=== PATIENT | female | born 1980 | race Caucasian/White ===

== ENCOUNTER 2019-09-01 07:43 | Inpatient (IN) ==
[2019-09-01] MEDS ORDERED: OXYTOCIN 30 UNITS/500 ML BAG IV PRN ×3 (07:47→14:41)
[2019-09-01] MEDS ORDERED: LACTATED RINGER'S 1,000 ML IV PRN (07:47)
--- NOTE | 2019-09-01 07:58 | History & Physical Report ---
Date of Service September 01, 2019 Assessment & Plan (1) Elective induction of labor planned: Neema is a 39 yo here today for IOL at 39w. - will start pitocin - plans to labor without analgesia; if pain becomes unbearable would consider stadol before epidural - intends to breast feed - anticipate vaginal delivery History of Present Illness Primary Care Provider: NO PCP at 39w, dated via LPM. Here for elective IOL - patient has strong preference for female provider due to cultural/spiritual reasons. is complicated by AMA for which Neema has been getting weekly NSTs since 36 weeks, all of which have been reactive. Neema also has a history of hypothyroidism, currently on Synthroid 125 mcg. Only other medication is PNV. At her office visit on 08/31/19, Neema reported passing a blood clot, after which she felt an increase in pelvic pressure. [place] some ctx last night, none so far today. She continues to feel movements. Water has not broke. Labs Blood type: B+ Antibody Screen: neg H.8 Hct: 38 Plt: 259 Rubella: non-immune VDRL/RPR: non-reactive Gonorrhea: neg Chlamydia: neg GBS: neg HIV: neg HbsAq: neg Glucose Tolerance x2: normal Allergies Allergy/AdvReac Type Severity Reaction Status Date / Time No Known Allergies Allergy Verified 09/01/19 08:18 Home Medications Home Medications Medication Instructions Recorded Confirmed Type levothyroxine 125 mcg capsule 125 mcg PO DAILY #30 cap 05/10/19 09/01/19 Rx prenat.vits,arturo,mob-mjso-crann 1 tab PO DAILY #90 tab 07/22/19 09/01/19 Rx Patient History Medical History Family history of congenital heart defect Hypothyroidism Varicella Surgical History S/P appendectomy S/P dilatation and curettage Family History Mother Diabetes Father Hypertension Social History Preferred Language: Portuguese Communication Ability: Effective Drug Inspector Required: No Beliefs That Will Affect Care: Cultural Cultural Beliefs: Pt does not want male physicians. Will make exception for anesthesia marital status: marital status details: Shaggy Stone (44) Current Living Situation: Family Current Living Situation Comment: and 4 children current occupational status: unemployed current occupation: homemaker Other Information That Helps Us Care for You: No Feels Safe at Home: Yes Safety Concerns: Feels Safe At This Time Smoking Status: Never smoker Hx Alcohol Use: No Hx Substance Use: No Review of Systems no fever, no chills and no sweats no worsening vision no cough and no dyspnea no chest pain, no palpitations and no calf pain no nausea, no vomiting, no constipation and no diarrhea/loose stools no dysuria and no urinary frequency Physical Exam Constitutional: WD/WN, vitals as above Eyes: + anicteric sclerae Neck: normal visual inspection Respiratory: normal respiratory effort, lungs clear to auscultation does not use accessory muscles Auscultation: no crackles, no rales, no wheezes and no pleural rub Cardiovascular: Rate/Rhythm: regular rate and regular rhythm Heart Sounds: normal S1 and normal S2; no gallop, no murmur and no cardiac rub Gastrointestinal (Abdomen): Gravid. Uterus at term; + heart tones; vertex position EFW 6-7 lbs. Neurologic: awake; no focal motor deficits Psychiatric: A+Ox3, euthymic affect Genitourinary: OB Exam Abdomen: + vertex, + estimated weight (6-7 pounds) and + irregular contractions OB Exam Monitor Tracing: + external FHT monitor used, + category I and + normal FHT variability Cervical Exam: 1 cm/ 70 % effacement/ -2 station, soft and posterior Results & Data Vital Signs (Past 12 Hours) Vital Signs Pulse BP 09/01/19 07:49 90 122/74 Monitoring External Monitor Baseline HR: 131 bpm Variability: moderate Accelerations: >2 in 20 minutes Decelerations: none Category 1 Tocodynamometer Contractions: occasional Supervising Physician Co-Signing Physician Notes Resident Physician Supervision Note: I was present with Dr. Henao during the history and exam. I discussed the case with the resident and agree with the findings and plan as documented in the note. Any exceptions or clarifications are listed here: [None] Documented By: Jammie Rodrigez MD, FACOG Resident Activity Tracking Resident Involvement: Resident Care Provided Care Provided: OB Delivery
[2019-09-01 08:16] LABS: Hemoglobin 12.8 g/dL (12.0-16.0); Mean Corpuscular Hemoglobin 29.6 pg (25-34); Platelet Count 259 K/uL (130-400); RDW Coefficient of Variation 13.9 % (11.5-14.5); RDW Standard Deviation 45.2 fL (36.4-46.3); Red Blood Count 4.32 M/uL (4.2-5.4); White Blood Count 8.07 K/uL (4.8-10.8)
[2019-09-01 08:21] LABS: Mean Corpuscular Hgb Conc 33.7 g/dL (32-36)
[2019-09-01] MEDS ORDERED: ePHEDrine sulfate 50 MG/ML AMP ONE (13:01)
[2019-09-01] MEDS ORDERED: fentaNYL citrate 100 MCG/2 ML VIAL ONE (13:01)
[2019-09-01] MEDS ORDERED: BUPIVACAINE 0.25% 30 ML VIAL ONE (13:01)
[2019-09-01] MEDS ORDERED: fentaNYL 2MCG/ML ROPIV 1.25MG/ML 100 ML BAG EPI ONE (13:02)
[2019-09-01] MEDS ORDERED: fentaNYL 2MCG/ML ROPIV 1.25MG/ML 100 ML BAG EPI PRN (13:14)
[2019-09-01] MEDS ORDERED: ePHEDrine sulfate 50 MG/ML AMP IV PRN (13:14)
[2019-09-01] MEDS ORDERED: DiphenhydrAMINE HCL 50 MG/ML VIAL IV PRN (13:14)
[2019-09-01] MEDS ORDERED: ONDANSETRON INJ 2 MG/ML 2 ML VIAL IV PRN (13:14)
[2019-09-01] MEDS ORDERED: NALBUPHINE HCL INJ 10 MG/ML AMP IV PRN (13:14)
[2019-09-01] MEDS ORDERED: NALOXONE HCL 0.4 MG/1 ML VIAL/CARP IV PRN (13:14)
[2019-09-01] MEDS ORDERED: NALOXONE HCL 1 MG in SODIUM CHLORIDE 0.9% 1000ML 1,000 ML IV PRN (13:14)
--- NOTE | 2019-09-01 13:17 | Anesthesiology Consultation ---
Date of Service September 01, 2019 Assessment & Plan Chart Review Chart Review: Patient NOT seen in Pre Admission Testing and Acceptable Risk for Labor Epidural Consults Requested none ASA ASA2 Proposed Anesthesia Anesthesia Type: Labor Epidural and CSE Risk / Benefits Reviewed With: PT / POA / Parent / Guardian, Accepts Plan and Informed Consent Obtained History Height/Weight Height: 5 ft 4.57 in Weight: 73.936 kg Allergies Allergy/AdvReac Type Severity Reaction Status Date / Time No Known Allergies Allergy Verified 09/01/19 08:18 Medications Home Medications Medication Instructions Recorded Confirmed Last Taken levothyroxine 125 mcg capsule 125 mcg PO DAILY #30 cap 05/10/19 09/01/19 09/01/19 06:00 prenat.vits,arturo,[id number]-[id number] 1 tab PO DAILY #90 tab 07/22/19 09/01/19 08/31/19 15:00 Active Medications Generic Name Dose Route Start Last Admin Trade Name Freq PRN Reason Stop Dose Admin Lactated Ringer's 1,000 mls @ 125 mls/hr 09/01/19 07:47 09/01/19 12:58 Lr IV 09/03/19 07:46 999 mls/hr .Q8H PRN Infusion L&D Protocol Protocol Oxytocin 30 units in 500 mls @ 9 mls/hr 09/01/19 07:47 09/01/19 12:10 Pitocin IV 09/03/19 07:46 0.54 units/hr .Q24H PRN 9 mls/hr Labor Induction/Augmentation Titration Protocol 0.54 UNITS/HR NPO Date Last Intake of Fluids: 09/01/19 Time Last Intake of Fluids: 14:00 Date Last Intake of Solids: 09/01/19 Time Last Intake of Solids: 06:30 Past Medical History Medical History Family history of congenital heart defect Hypothyroidism Varicella Exercise / Class Metabolic Activity II 4-5 Yardwork/Stairs/Walk up hill Past Family History Family History Mother Diabetes Father Hypertension Past Surgical History Surgical History S/P appendectomy S/P dilatation and curettage Past Anesthesia History No Hx of Anesthesia Complications and No Family Hx of Anesthesia Complications History of PONV No Hx of PONV and No Hx of Motion Sickness Social History Smoking Status: Never smoker Hx Alcohol Use: No Hx Substance Use: No Review of Systems no chest pain or sob Physical Exam Vital Signs Last Vital Signs Temp 36.9 C 09/01/19 12:03 Pulse 78 09/01/19 13:10 Resp 20 09/01/19 12:03 BP 121/60 09/01/19 13:06 Pulse Ox 99 09/01/19 13:10 ENMT Mouth: no TMJ abnormality Thyromental Distance: > or= 3.5 Finger Breadths Mallampati Class: II Neck normal visual inspection Respiratory normal respiratory effort Auscultation: lungs clear to auscultation bilaterally Cardiovascular Rate/Rhythm: regular rate and regular rhythm Musculoskeletal Spine: normal cervical ROM Neurologic moves all extremities Psychiatric Orientation: alert and oriented x 3 Testing Laboratory Results 09/01/19 07:55
[2019-09-01] MEDS ORDERED: OXYCODONE/ACETAMINOPHEN 5mg/325mg TAB PO PRN (14:41)
[2019-09-01] MEDS ORDERED: bisacodyL 10 MG SUPP PR PRN (14:41)
[2019-09-01] MEDS ORDERED: ACETAMINOPHEN 325 MG TAB PO PRN (14:41)
[2019-09-01] MEDS ORDERED: HYDROCORTISONE ACETATE 25 MG SUPP PR PRN (14:41)
[2019-09-01] MEDS ORDERED: DIPHTHERIA/TETANUS/PERTUSSIS 0.5 ML SYR/VIAL IM ONE (14:41)
[2019-09-01] MEDS ORDERED: BENZOCAINE 20% AER SPR 82.5 GM CAN EXT PRN (14:41)
[2019-09-01] MEDS ORDERED: SUPERCREAM 0.870% 15 GM JAR EXT PRN (14:41)
--- NOTE | 2019-09-01 15:13 | Anesthesia Procedure Note ---
Date of Service September 01, 2019 Anesthesia Post Epidural Note Vital Signs Vital Signs: Temp Pulse Resp BP Pulse Ox 36.9 C 75 20 117/56 L 98 09/01/19 13:43 09/01/19 14:56 09/01/19 14:41 09/01/19 14:56 09/01/19 14:10 Notes Mental Status: alert / awake / arousable and participated in evaluation Nausea / Vomiting: adequately controlled Pain: adequately controlled Airway Patency, RR, SpO2: stable & adequate BP & HR: stable & adequate Hydration State: stable & adequate Neuraxial Anesthesia: was administered and sensory block is resolving Anesthetic Complications: no major complications apparent and Pt Satisfied with anesthetic care Epidural: Removed without complications and With tip intact
--- NOTE | 2019-09-01 16:46 | Delivery Summary ---
DATE OF OPERATION: 09/01/2019 The patient is a 39-year-old 6, para 4-0-1-4, white female who presented at 39 weeks for elective induction because of a history of rapid labor and delivery with her last 2 infants. She arrived in labor and delivery for induction. She was started on Pitocin augmentation. She ruptured membranes spontaneously for clear fluid. She progressed to 5 cm dilated and was requesting epidural analgesia. This worked effectively and she was complete and feeling rectal pressure shortly after the epidural was effective. She pushed effectively over intact perineum for delivery of a viable male . The delivered direct occiput posterior presentation. The rest of the infant delivered easily and was placed on the mother's abdomen for further attention and drying. The was vigorously crying and moving all 4 limbs. The cord was clamped and cut after 30 seconds. A cord blood donation specimen was obtained. The placenta was then expressed intact with a 3-vessel cord. A first-degree perineal laceration was repaired with 3-0 chromic in the usual fashion. Estimated blood loss was 200 mL. Bladder was emptied for 200 mL of urine after the repair was done. Mother and infant were doing well post-delivery. I attest to the content of the Intraoperative Record and any orders documented therein. Any exception s are noted below.
[2019-09-01] MEDS ORDERED: DOCUSATE SODIUM 100 MG CAP ONE (19:57)
[2019-09-01] MEDS: DOCUSATE SODIUM 100 MG CAP PO SCH (21:49)
[2019-09-01] MEDS: IBUPROFEN 600 MG TAB PO PRN (23:49)
[2019-09-02 06:24] LABS: Hematocrit (blood only) 35.7 % (37-47); Hemoglobin 12.1 g/dL (12.0-16.0); Mean Corpuscular Hemoglobin 29.8 pg (25-34); Mean Corpuscular Hgb Conc 33.9 g/dL (32-36); Mean Corpuscular Volume 87.9 fL (80-100); Mean Platelet Volume 10.1 fL (7.4-10.4); Platelet Count 228 K/uL (130-400); RDW Standard Deviation 44.7 fL (36.4-46.3); Red Blood Count 4.06 M/uL (4.2-5.4); White Blood Count 11.18 K/uL (4.8-10.8)
--- NOTE | 2019-09-02 06:32 | Obstetrical Progress Note ---
Date of Service September 02, 2019 Assessment & Plan (1) Status post vaginal delivery: Neema is a 39 yo on PPD 1 after elective IOL at 39w - GBS -, Blood Type B+, Rubella non-immune -Vitals reviewed and WNL - hemoglobin stable - bloating likely secondary to abdominal wall weakness in a multip - will look into maternity belt for her -patient is doing clinically well Recovering normally - After discharge will have [address] Trent. Supervising Physician Co-Signing Physician Notes Resident Physician Supervision Note: I interviewed and examined the patient. Discussed with Dr. Martinez and agree with findings and plan as documented in the note. Any exceptions or clarifications are listed here: [None] Documented By: Jammie Rodrigez MD, FACOG Subjective Ambulation: ambulating normally Voiding: no voiding problems Passing Gas:: Yes Diet Tolerance:: regular diet Lochia:: moderate Feeding Type:: breast feeding Review of Systems Constitutional: no fever, no chills and no sweats Eyes: no worsening vision Respiratory: no cough and no dyspnea Cardiovascular: no chest pain, no palpitations, no edema and no calf pain Gastrointestinal: + bloating; no nausea and no vomiting Genitourinary: no dysuria and no urinary frequency Neurologic: no headache(s) Physical Exam Constitutional: WD/WN, vitals as above no acute distress Respiratory: normal respiratory effort, lungs clear to auscultation does not use accessory muscles Auscultation: no crackles, no rales, no rhonchi, no wheezes and no pleural rub Cardiovascular: Rate/Rhythm: regular rate and regular rhythm Heart Sounds: normal S1 and normal S2; no gallop, no murmur and no cardiac rub Extremities: no calf tenderness and no pedal edema Gastrointestinal (Abdomen): Inspection/Auscultation: normal bowel sounds; abdomen not distended Percussion/Palpation: abdomen soft Genitourinary: Uterus: fundus firm, palpable 1 cm below the umbilicus Results & Data Vital Signs (Past 12 Hours) Vital Signs Temp Pulse Resp BP Pulse Ox 09/02/19 03:35 36.6 C 72 18 100/66 97 09/01/19 23:35 36.6 C 73 18 100/64 97 09/01/19 19:30 36.7 C 84 18 104/65 97 Resident Activity Tracking Resident Involvement: Resident Care Provided Care Provided: OB Delivery
[2019-09-02] MEDS: LEVOTHYROXINE SODIUM 125 MCG TABLET PO SCH (06:53)
[2019-09-02] MEDS: PRENATAL VITAMIN 1 TAB PO SCH (08:05)
[2019-09-02] MEDS: DOCUSATE SODIUM 100 MG CAP PO SCH ×2 (08:05→22:02)
[2019-09-02] MEDS ORDERED: MEASLES, MUMPS & RUBELLA VIRUS VIAL SQ ONE (12:57)
[2019-09-02] MEDS ORDERED: bisacodyL 5 MG TABEC PO SCH (20:00)
[2019-09-02] MEDS: IBUPROFEN 600 MG TAB PO PRN (22:02)
[2019-09-03] MEDS: LEVOTHYROXINE SODIUM 125 MCG TABLET PO SCH (06:45)
--- NOTE | 2019-09-03 06:51 | Obstetrical Progress Note ---
Date of Service September 03, 2019 Assessment & Plan (1) Status post vaginal delivery: Neema is a 39 yo on PPD 2 after elective IOL at 39w - GBS -, Blood Type B+, Rubella non-immune - Vitals reviewed and WNL - bloating likely secondary to abdominal wall weakness in a multip - script p rovided for maternity belt - will check TSH in post- period - patient is doing clinically well Recovering normally. Discharge instructions reviewed. - After discharge will have [address] Trent. Supervising Physician Co-Signing Physician Notes Resident Physician Supervision Note: I was present with Dr. Martinez during the history and exam. I discussed the case with the resident and agree with the findings and plan as documented in the note. Any exceptions or clarifications are listed here: D/c instructions reviewed, questions answered Documented By: Horacio Castellano Jr, MD, FACOG Subjective Ambulation: ambulating normally Voiding: no voiding problems Passing Gas:: Yes Diet Tolerance:: regular diet Lochia:: mild Feeding Type:: breast feeding Review of Systems Constitutional: +bilateral breast pain when nursing Gastrointestinal: + bloating; no nausea and no vomiting Physical Exam Constitutional: WD/WN, vitals as above no acute distress Eyes: + anicteric sclerae Neck: normal visual inspection Respiratory: normal respiratory effort, lungs clear to auscultation does not use accessory muscles Auscultation: no crackles, no rales, no rhonchi, no wheezes and no pleural rub Cardiovascular: Rate/Rhythm: regular rate and regular rhythm Heart Sounds: normal S1 and normal S2; no gallop, no murmur and no cardiac rub Extremities: no calf tenderness and no pedal edema Gastrointestinal (Abdomen): Inspection/Auscultation: normal bowel sounds; abdomen not distended Percussion/Palpation: abdomen soft Neurologic: awake; no focal motor deficits Psychiatric: A+Ox3, euthymic affect Genitourinary: Uterus: fundus firm, palpable 2 cm below the umbilicus Results & Data Vital Signs (Past 12 Hours) Vital Signs Temp Pulse Resp BP Pulse Ox 09/03/19 01:45 36.6 C 81 16 98/63 L 98 09/02/19 19:40 36.6 C 79 16 100/62 97 Resident Activity Tracking Resident Involvement: Resident Care Provided Care Provided: OB Delivery
[2019-09-03 07:10] LABS: Hematocrit (blood only) 36.4 % (37-47); Hemoglobin 12.1 g/dL (12.0-16.0)
[2019-09-03] MEDS: DOCUSATE SODIUM 100 MG CAP PO SCH (10:59)
[2019-09-03] MEDS: PRENATAL VITAMIN 1 TAB PO SCH (10:59)
== END 2019-09-03 16:50 | disposition home or self-care (01) | DRG 807 ==
LOC: 4S1 07:43 → 4S2 18:53

== ENCOUNTER 2022-02-15 07:48 | Inpatient (IN) ==
[2022-02-15] MEDS ORDERED: OXYTOCIN 30 UNITS/500 ML BAG IV PRN ×3 (07:55→18:48)
--- NOTE | 2022-02-15 08:30 | History & Physical Report ---
Date of Service February 15, 2022 Assessment & Plan (1) Gestational diabetes: (2) : (3) Post-dates : Plan 41 year old female at 40 1/7 1. Fetus: Cat 1 2. Labor: Induction with Pitocin 3. GBS - 4. Vitals: Normal 5. GDM: continue to monitor blood sugars Admission and Anticipated Discharge Date Admission Date: February 15, 2022 History of Present Illness Primary Care Provider: NO PCP Neema is a 41 y/o female currently at [facility] with an PAULO 02/20/22 as determined by LMP who is here for induction/. Her was complicated by gestational diabetes, hypothyroidism, advanced maternal age. No contractions; + movement; no fluid loss; no bloody show External FHT and external uterine monitors used; Category 1 tracing; mod FHT variability. Had regular appointments with OB. Labs: (07/17/22) Blood type: B+ Antibody screen: negative H.3 (today) Hct: 36.2 (today) WBC: 6.97 (today) Plt: 192 (today) Rubella: immune VDRL/RPR: nonreactive Gonorrhea: negative Chlamydia: negative HIV: negative HbSAg: Neg GBS: neg Other screens: panorama low risk-- smp cf/sma neg-- smp Allergies Allergy/AdvReac Type Severity Reaction Status Date / Time No Known Allergies Allergy Verified 02/14/22 13:42 Home Medications Medication Instructions Recorded Confirmed Type prenat.vits,arturo,[id number] 1 tab PO DAILY #90 tabs 07/17/21 02/14/22 Rx acetone (urine) test (Ketone Urine #50 ea 12/24/21 02/14/22 Rx Test) blood sugar diagnostic (OneTouch #150 ea 12/24/21 02/14/22 Rx Verio test strips) blood-glucose meter (OneTouch #1 ea 12/24/21 02/14/22 Rx Verio Flex meter) lancets 33 gauge (OneTouch Delica #150 ea 12/24/21 02/14/22 Rx Plus Lancet) levothyroxine 125 mcg tablet 125 mcg PO DAILY #30 tabs 02/12/22 02/14/22 Rx Patient History Medical History (Updated 02/15/22 @ 10:06 by Sammie Parra DO) Gestational diabetes 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 Surgical History S/P appendectomy S/P dilatation and curettage Family History Mother Diabetes Father Hypertension Social History (Updated 07/03/21 @ 10:58 by Zahra Coto) Smoking Status: Never smoker Second Hand Exposure: No; Do You Dip or Chew Tobacco: No; Tobacco Cessation Education Requested by Patient: No Hx Alcohol Use: No Hx Substance Use: No Preferred Language: [place] Communication Ability: Effective Commodity Director Required: No Beliefs That Will Affect Care: None marital status: marital status details: Shaggy Stone (46) in [place] Current Living Situation: Spouse and Family Current Living Situation Comment: and 5 children current occupational status: unemployed current occupation: homemaker Feels Safe at Home: Yes Safety Concerns: Feels Safe At This Time Assistive Devices: None Review of Systems Denies fever, chills, sweats Denies shortness of breath, difficulty breathing, chest pain, palpitations, chest pressure. Denies breast pain. Denies dysuria. Denies headache or changes in vision. Physical Exam Physical Exam: General: Alert, oriented. No acute distress. Cardiac: Regular rate and rhythm, no murmurs/rubs/gallops. Respiratory: Clear to auscultation bilaterally a/p, no wheezes/rales/rhonchi. No increased work of breathing. Symmetrical chest rise. No respiratory distress. Abdomen: Gravid Lower Extremities: No lower extremity edema or swelling. No deep calf pain. Velia's negative bilaterally Genitourinary: OB Exam Abdomen: + vertex and + estimated weight (6-7 pounds) Manual OB Exam: + cervical dilation (closed), + cervical effacement 70% and + station -2 OB Exam Monitor Tracing: + external FHT monitor used, + external uterine monitor used, + category I and + normal FHT variability after reviewing the procedure with Neema, she is agreeable to having cervical balloon placed along with pitocin for labor augmentation. After the speculum was placed, the cervix was visualized and a Reece catheter was inserted into the cervical os with the assistance of a stylet. 40cc of sterile water was placed into the balloon. the catheter was then placed on traction and attached to her left thigh. She tolerated the procedure well. Supervising Physician Co-Signing Physician Notes Resident Physician Supervision Note: I interviewed and examined the patient. Discussed with Dr. Parra and agree with findings and plan as documented in the note. Any exceptions or clarifications are listed here: [None] Documented By: Jammie Rodrigez MD, FACOG Resident Activity Tracking Resident Involvement: Resident Care Provided Care Provided: OB Delivery
[2022-02-15 09:00] LABS: Hematocrit (blood only) 36.2 % (34.1-44.9); Hemoglobin 12.3 g/dl (12.0-16.0); Mean Corpuscular Hemoglobin 29.4 pg (25.0-34.0); Mean Corpuscular Volume 86.4 fL (80.0-100.0); Mean Platelet Volume 10.5 fL (9.4-12.3); Platelet Count 192 K/uL (130-400); RDW Coefficient of Variation 12.8 % (11.5-14.5); RDW Standard Deviation 39.7 fL (36.4-46.3); Red Blood Count 4.19 M/uL (3.93-5.22); White Blood Count 6.97 K/ul (4.8-10.8)
[2022-02-15] MEDS: LACTATED RINGER'S 1,000 ML IV PRN ×2 (09:35→17:07)
[2022-02-15] MEDS ORDERED: ePHEDrine sulfate 50 MG/ML AMP ONE (16:46)
[2022-02-15] MEDS ORDERED: fentaNYL citrate 100 MCG/2 ML VIAL ONE (16:46)
[2022-02-15] MEDS ORDERED: SODIUM CHLORIDE 0.9% INJ 10 ML VIAL ONE (16:46)
[2022-02-15] MEDS ORDERED: BUPIVACAINE 0.25% 30 ML VIAL ONE (16:47)
[2022-02-15] MEDS ORDERED: fentaNYL 2MCG/ML ROPIVACAINE 1.25MG/ML 100 ML BAG EPI ONE (16:47)
[2022-02-15] MEDS ORDERED: LIDOCAINE 2%/EPINEPHRINE 1:200,000 20 ML SDV ONE (16:47)
[2022-02-15] MEDS ORDERED: NALOXONE HCL 0.4 MG/1 ML VIAL/CARP IV PRN (17:27)
[2022-02-15] MEDS ORDERED: fentaNYL 2MCG/ML ROPIVACAINE 1.25MG/ML 100 ML BAG EPI PRN (17:27)
[2022-02-15] MEDS ORDERED: ePHEDrine sulfate 50 MG/ML AMP IV PRN (17:27)
[2022-02-15] MEDS ORDERED: diphenhydrAMINE 50 MG/ML VIAL IV PRN (17:27)
[2022-02-15] MEDS ORDERED: ONDANSETRON INJ 2 MG/ML 2 ML VIAL IV PRN (17:27)
[2022-02-15] MEDS ORDERED: NALOXONE HCL 1 MG in SODIUM CHLORIDE 0.9% 1000ML 1,000 ML IV PRN (17:27)
[2022-02-15] MEDS ORDERED: NALBUPHINE HCL INJ 10 MG/ML AMP IV PRN (17:27)
--- NOTE | 2022-02-15 17:29 | Anesthesiology Consultation ---
Date of Service February 15, 2022 Assessment & Plan Chart Review Chart Review: Patient NOT seen in Pre Admission Testing and Acceptable Risk for Labor Epidural Consults Requested none ASA ASA2 Proposed Anesthesia Anesthesia Type: Labor Epidural and CSE Risk / Benefits Reviewed With: PT / POA / Parent / Guardian, Accepts Plan and Informed Consent Obtained History Height/Weight Height: 5 ft 1.42 in Weight: 77.111 kg Allergies Allergy/AdvReac Type Severity Reaction Status Date / Time No Known Allergies Allergy Verified 02/15/22 10:34 Medications Home Medications Medication Instructions Recorded Confirmed Last Taken prenat.vits,arturo,[id number] 1 tab PO DAILY #90 tabs 07/17/21 02/15/22 1 Day Ago ~02/14/22 acetone (urine) test (Ketone Urine #50 ea 12/24/21 02/15/22 Unknown Test) blood sugar diagnostic (OneTouch #150 ea 12/24/21 02/15/22 Unknown Verio test strips) blood-glucose meter (OneTouch #1 ea 12/24/21 02/15/22 Unknown Verio Flex meter) lancets 33 gauge (OneTouch Delica #150 ea 12/24/21 02/15/22 Unknown Plus Lancet) levothyroxine 125 mcg tablet 125 mcg PO DAILY #30 tabs 02/12/22 02/15/22 02/15/22 Active Medications Generic Name Dose Route Start Last Admin Trade Name Freq PRN Reason Stop Dose Admin Lactated Ringer's 1,000 mls @ 125 mls/hr 02/15/22 07:55 02/15/22 17:07 Lr IV 02/17/22 07:54 125 mls/hr .Q8H PRN Administration L&D Protocol Protocol Oxytocin 30 units in 500 mls @ 15 mls/hr 02/15/22 07:57 02/15/22 16:01 Pitocin IV 02/17/22 07:56 0.9 units/hr .Q24H PRN 15 mls/hr Labor Induction/Augmentation Titration Protocol 0.9 UNITS/HR NPO Date Last Intake of Fluids: 02/15/22 Time Last Intake of Fluids: 16:00 Date Last Intake of Solids: 02/15/22 Time Last Intake of Solids: 09:00 Past Medical History Medical History Gestational diabetes 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 Exercise / Class Metabolic Activity II 4-5 Yardwork/Stairs/Walk up hill Past Family History Family History Mother Diabetes Father Hypertension Past Surgical History Surgical History S/P appendectomy S/P dilatation and curettage Past Anesthesia History No Hx of Anesthesia Complications and No Family Hx of Anesthesia Complications History of PONV No Hx of PONV and No Hx of Motion Sickness Social History Smoking Status: Never smoker Do You Dip or Chew Tobacco: No Hx Alcohol Use: No Hx Substance Use: No Review of Systems no chest pain or sob Physical Exam Vital Signs Last Vital Signs Temp 36.7 C 02/15/22 14:53 Pulse 99 H 02/15/22 17:27 Resp 16 02/15/22 16:33 BP 126/66 02/15/22 17:26 Pulse Ox 100 02/15/22 17:27 ENMT Mouth: no TMJ abnormality Thyromental Distance: > or= 3.5 Finger Breadths Mallampati Class: II Neck normal visual inspection Respiratory normal respiratory effort Auscultation: lungs clear to auscultation bilaterally Cardiovascular Rate/Rhythm: regular rate and regular rhythm Musculoskeletal Spine: normal cervical ROM Neurologic moves all extremities Psychiatric Orientation: alert and oriented x 3 Testing Laboratory Results 02/15/22 08:13 Blood Type B Positive 02/15/22 08:13 Antibody Screen NEGATIVE 02/15/22 08:13 02/15/22 09:43 POC Glucose 88
[2022-02-15] MEDS ORDERED: bisacodyL 10 MG SUPP PR PRN (18:48)
[2022-02-15] MEDS ORDERED: HYDROCORTISONE ACETATE 25 MG SUPP PR PRN (18:48)
[2022-02-15] MEDS ORDERED: BENZOCAINE 20% AER SPR 82.5 GM CAN EXT PRN (18:48)
[2022-02-15] MEDS ORDERED: oxyCODONE/ACETAMINOPHEN 5mg/325mg TAB PO PRN (18:48)
[2022-02-15] MEDS ORDERED: DIPHTHERIA/TETANUS/PERTUSSIS 0.5 ML SYR/VIAL IM ONE (18:48)
--- NOTE | 2022-02-15 18:53 | Delivery Summary ---
Vaginal Delivery Summary Date of Service February 15, 2022 Vaginal Delivery Summary and 1st Degree LAC Patient is a 41-year-old 6 para 5-0-0-5 female EDC of 02/20/2022 who presented for elective induction of labor at 39-2/7 weeks. She initially had a cervical balloon placed and Pitocin augmentation begun simultaneously. The balloon expelled on its own and she was 4 cm at that time. Membranes were ruptured for clear fluid. She requested epidural analgesia which was effective. She had the urge to push and was complete. She pushed effectively over intact perineum for delivery of a viable male . The infant was vigorous at . Infant was placed on the mother's abdomen for further attention and drying. The cord was clamped and cut after 1 minute. After cord blood was obtained the placenta was expressed intact with a three-vessel cord. First- degree perineal laceration was repaired with 3-0 chromic in the usual fashion. Estimated blood loss was 200 cc. bleeding was controlled with dilute Pitocin. Mother and infant were doing well after delivery. [facility] Vaginal Delivery Charge Delivery Type Details: and 1st Degree LAC
--- NOTE | 2022-02-15 18:54 | Anesthesia Procedure Note ---
Date of Service February 15, 2022 Anesthesia Post Epidural Note Vital Signs Vital Signs: Temp Pulse Resp BP Pulse Ox 36.6 C 79 16 109/56 L 100 02/15/22 18:46 02/15/22 18:46 02/15/22 18:46 02/15/22 18:46 02/15/22 18:46 Pain Intensity Lower Abdomen: Pain Intensity: 3 Notes Mental Status: alert / awake / arousable and participated in evaluation Nausea / Vomiting: adequately controlled Pain: adequately controlled Airway Patency, RR, SpO2: stable & adequate BP & HR: stable & adequate Hydration State: stable & adequate Neuraxial Anesthesia: was administered and sensory block is resolving Anesthetic Complications: no major complications apparent and Pt Satisfied with anesthetic care Epidural: Removed without complications and With tip intact
[2022-02-15] MEDS: DOCUSATE SODIUM 100 MG CAP PO SCH (20:36)
--- NOTE | 2022-02-16 05:24 | Obstetrical Progress Note ---
Date of Service <Sammie Parra - Last Filed: 02/16/22 06:46> February 16, 2022 Assessment & Plan <Sammie Parra DO - Last Filed: 02/16/22 06:46> (1) Status post vaginal delivery: continue OOB, ambulation, diet as tolerated <Jammie Rodrigez MD, FACOG - Last Filed: 02/16/22 07:51> (1) Status post vaginal delivery: Subjective <Sammie Parra - Last Filed: 02/16/22 06:46> Neema is a 41 y/o female who is now PPD # 1 following vaginal delivery at 40 1/7. Reports feeling well overall this morning. Mild abdominal cramping, pain well managed on analgesics. Voiding. Tolerating meals overnight and able to ambulate some. Is passing gas, but no bowel movements. Some persistent lochia with some improvement this morning. Breast feeding. Review of Systems Denies fever, chills, sweats Denies shortness of breath, difficulty breathing, chest pain, palpitations, chest pressure. Denies breast pain. Denies dysuria. Denies headache or changes in vision. Physical Exam <Sammie Parra - Last Filed: 02/16/22 06:46> General: Alert, oriented. No acute distress. Cardiac: Regular rate and rhythm, no murmurs/rubs/gallops. Respiratory: Clear to auscultation bilaterally a/p, no wheezes/rales/rhonchi. No increased work of breathing. Symmetrical chest rise. No respiratory distress. Abdomen: Soft, nontender, nondistended. Bowel sounds present. Uterus: Uterine fundus firm, palpable 1 cm below umbilicus. Lower Extremities: No lower extremity edema or swelling. No deep calf pain. Velia's negative bilaterally. Results & Data ([facility]) <Sammie Parra - Last Filed: 02/16/22 06:46> Vital Signs (Past 12 Hours) Temp Pulse Resp BP Pulse Ox O2 Del Method 36.6 C 72 16 87/55 L 99 02/16/22 03:44 02/16/22 03:44 02/16/22 03:44 02/16/22 03:44 02/16/22 03:44 02/16/22 03:44 <Jammie Rodrigez MD, FACOG - Last Filed: 02/16/22 07:51> Co-Signing Physician Notes Resident Physician Supervision Note: I interviewed and examined the patient. Discussed with Dr. Parra and agree with findings and plan as documented in the note. Any exceptions or clarifications are listed here: [None] Documented By: Jammie Rodrigez MD, FACOG Resident Activity Tracking <Sammie Parra, - Last Filed: 02/16/22 06:46> Resident Involvement: Resident Care Provided Care Provided: OB Delivery (Post )
[2022-02-16] MEDS: LEVOTHYROXINE SODIUM 125 MCG TABLET PO SCH (06:49)
[2022-02-16 07:04] LABS: Hematocrit (blood only) 33.7 % (34.1-44.9); Hemoglobin 11.4 g/dl (12.0-16.0); Mean Corpuscular Hemoglobin 29.3 pg (25.0-34.0); Mean Corpuscular Hgb Conc 33.8 g/dL (32.0-36.0); Mean Corpuscular Volume 86.6 fL (80.0-100.0); Mean Platelet Volume 10.8 fL (9.4-12.3); Platelet Count 178 K/uL (130-400); RDW Coefficient of Variation 12.9 % (11.5-14.5); RDW Standard Deviation 40.2 fL (36.4-46.3); Red Blood Count 3.89 M/uL (3.93-5.22); White Blood Count 9.34 K/ul (4.8-10.8)
[2022-02-16] MEDS: DOCUSATE SODIUM 100 MG CAP PO SCH ×2 (07:39→20:03)
[2022-02-16] MEDS: PRENATAL VITAMIN 1 TAB PO SCH (07:39)
[2022-02-16] MEDS: IBUPROFEN 600 MG TAB PO PRN ×3 (07:39→23:44)
[2022-02-16] MEDS: ACETAMINOPHEN 325 MG TAB PO PRN ×2 (16:40→23:44)
[2022-02-16] MEDS ORDERED: bisacodyL 5 MG TABEC PO SCH (20:00)
[2022-02-17] MEDS: LEVOTHYROXINE SODIUM 125 MCG TABLET PO SCH (06:28)
[2022-02-17 07:53] LABS: Hemoglobin 12.2 g/dl (12.0-16.0)
[2022-02-17] MEDS: PRENATAL VITAMIN 1 TAB PO SCH (08:13)
[2022-02-17] MEDS: DOCUSATE SODIUM 100 MG CAP PO SCH (08:13)
[2022-02-17] MEDS: IBUPROFEN 600 MG TAB PO PRN (08:13)
--- NOTE | 2022-02-17 08:51 | Obstetrical Progress Note ---
Date of Service February 17, 2022 Assessment & Plan (1) Status post vaginal delivery: Plan Doing well. PLan d/c. Instructions given. Call with concerns. Continue thyroid med. Day #:: 2 Subjective Ambulation: ambulating normally Voiding: no voiding problems Passing Gas:: Yes Diet Tolerance:: regular diet Lochia:: Small Feeding Type:: breast feeding Feels well. Ready for d/c. Physical Exam Constitutional WD/WN, vitals as above Neck trachea midline, no thyromegaly Respiratory normal respiratory effort, lungs clear to auscultation Cardiovascular RRR, no murmur, no edema Extremities: no calf tenderness and no edema Gastrointestinal (Abdomen) soft, nt, nd, ff/nt at u Psychiatric A+Ox3, euthymic affect Results & Data ([facility]) Vital Signs (Past 12 Hours) Vital Signs Temp Pulse Resp BP Pulse Ox O2 Del Method 02/16/22 23:40 36.3 C L 69 16 104/67 98 Room Air
== END 2022-02-17 13:15 | disposition home or self-care (01) | DRG 807 ==
LOC: 4S1 07:48 → 4E2 21:19